=== PATIENT | female | born 1970 | race Caucasian/White ===

== ENCOUNTER 2017-08-20 06:10 | Day surgery (SDC) | payer OTHER ==
[2017-08-20 06:28] LABS: Specific Gravity 1.025 (1.005-1.030)
[2017-08-20] MEDS ORDERED: SCOPOLAMINE HYDROBROMIDE PATCH TD ONE (06:28)
[2017-08-20] MEDS ORDERED: NS 0.9% VIAL 10 ML ONE ×2 (06:28→07:21)
[2017-08-20] MEDS ORDERED: Ringers Lactate 1,000 ML IV ONE ×2 (06:28→08:46)
[2017-08-20] MEDS ORDERED: CEFAZOLIN SODIUM 1 GM/VIAL ONE (06:28)
[2017-08-20] MEDS ORDERED: BACITRACIN 50000 UNIT VIAL ONE (06:29)
[2017-08-20] MEDS ORDERED: LIDOCAINE 1% 20 ML MDV ONE (06:29)
[2017-08-20] MEDS ORDERED: GENTAMICIN SULF 80 MG/2ML INJ ONE (06:29)
[2017-08-20] MEDS ORDERED: CEFAZOLIN/SWI 2gm 2 GM/20 ML SYR IV SCH (07:00)
[2017-08-20] MEDS ORDERED: MIDAZOLAM HCL 2 MG/2 ML INJ ONE (07:12)
[2017-08-20] MEDS ORDERED: LIDOCAINE 2% MPF 5 ML VIAL ONE (07:12)
[2017-08-20] MEDS ORDERED: PROPOFOL 200 MG/20 ML VIAL IV ONE (07:12)
[2017-08-20] MEDS ORDERED: FENTANYL CITR 100 MCG/2 ML ONE ×2 (07:12→08:02)
[2017-08-20] MEDS ORDERED: ROCURONIUM 50 MG/5 ML VIAL IV ONE ×2 (07:12→07:48)
[2017-08-20] MEDS ORDERED: ONDANSETRON HCL 40 MG/20 ML VIAL ONE (07:13)
[2017-08-20] MEDS ORDERED: LIDOCAINE 1% W/EPI 1:100,000 MDV 50 ML VIAL ONE (07:26)
[2017-08-20] MEDS ORDERED: DEXAMETHASONE 10 MG/ML VIAL ONE (07:45)
[2017-08-20] MEDS ORDERED: GLYCOPYRROLATE 0.2 MG/ML SYR ONE (08:21)
[2017-08-20] MEDS ORDERED: KETOROLAC 30 MG/ML INJ ONE (08:24)
[2017-08-20] MEDS ORDERED: MEPERIDINE HCL 25 MG/0.5 ML ONE (09:24)
[2017-08-20] MEDS ORDERED: HYDROCODONE/APAP 7.5/325 MG TAB ONE (10:15)
--- NOTE | 2017-08-20 20:35 | OP ---
Date of Procedure: 08/20/2017 Surgeon: Jordan Guerin MD Project Control Officer: DEIDRE Chao. 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 Postoperative Diagnoses: Bilateral mammary hypoplasia and mild asymmetry. Operation Performed: Bilateral augmentation mammoplasty using mentor smooth, round, high profile gel implant, 500 cc placed through an inframammary approach in a dual plane pocket. Anesthesia: General endotracheal anesthesia as well as local anesthetic. A total of 20 cc of 1% lid ocaine with epinephrine 1:100,000 infiltrated in the breast based on preoperative markings prior to p repping and draping. Blood Loss: Minimal. Specimens: There were no specimens sent. Indications: The patient is a 47-year-old white female, who is interested in aesthetic rejuvenation of the breast to improve overall shape, fullness, projection, and improved symmetry. The patient und erstands the risks, limitations of the procedure and anesthesia as well as the implants, limitations of her own anatomy and wishes to proceed. Operation In Detail: The patient was seen in the preoperative holding area. The operative plan revi ewed. The size, style, and shape of implants were confirmed. She was given Ancef 2 g IV piggyback p rior to skin incision within 1 hour. ANTONI hose and sequential compression devices were placed on the lower extremities and activated prior to induction of general anesthesia. Markings were performed wi th planned inframammary approach for dual plane pocket placement of the implant. The patient was the n brought to the operating suite, placed in a comfortable supine position on the bed. After inductio n of general anesthesia, the arms were padded at the sides and taped across the lower abdomen. The c hest was prepped and draped in sterile fashion. Prior to this, infiltration of local anesthesia was carried out based on preoperative markings. Both prepping and draping was completed in a similar fas hion bilaterally. The inframammary incisions were made based on preoperative markings and cautery wa s used to dissect down through subcutaneous tissues and superficial fascia down to the chest wall whe re the lateral pectoralis muscle was identified and then elevated off the chest wall above its origin to a point corresponding to the medial aspect of the external inframammary fold. A dual plane pocke t was then created by dividing the muscle 1 cm above its origin from this point out through its later al border and then dissecting off the pectoralis minor, superior, and superomedial chest wall and dis secting out to the lateral border of the breast approximately the anterior axillary fold. After comp letion of pocket dissection, the pocket was copiously irrigated with saline and any bleeding points w ere cauterized. Once finding hemostasis to be satisfactory, the pockets were then irrigated with a 5 0:50 mix of 10% Betadine solution and triple antibiotic solution (500 cc of warm saline with 1 g Ance f, 50,000 units of bacitracin and 80 mg of gentamicin). This was left in place for approximately 5 m inutes and then the fluid was suctioned out of the pockets and then triple antibiotic solution was pl aced back in the pocket. The gloves were changed and wiped down with triple antibiotic soaked lap pa d, which was placed on the inframammary incisions and Betadine-soaked sponges were placed over the ni pple-areolar complex. In a no-touch fashion, the mentor smooth, round, high profile gel implant, 500 cc were then using a Rajan funnel, placed in the pocket and minor pocket adjustments were made with a uterine sound and further irrigation with triple antibiotic solution. Final hemostasis to be sati sfactory. The pockets were then closed with a deep running 2-0 PDS in the fascial layer and then an interrupted 3-0 PDS in the subdermal subcutaneous layer and then a running subcuticular 4-0 Monocryl. At the end of the case, the patient was found to have good symmetry and shape with both breasts and incisions intact. The incisions were then dressed with Xeroform gauze, ABD pads, Kerlix, and Cordell wr ap. The patient has extubated and taken recovery in stable condition where she will be discharged ho wa in care of her when she meets criteria for discharge. Advance to regular diet as tolerate d. She has tramadol to take as directed for pain as needed, Flexeril to take as directed as needed f or muscle spasm, oral Zofran ODT to take as directed as needed for nausea and oral doxycycline to take as directed staring postoperatively. We will see her back in the office allen zhu for recheck and dressing change. GP/MODL Voice ID: [id number] Report ID: [id number]
== END 2017-08-20 11:03 | disposition home or self-care (01) ==
LOC: OR 06:10
PROVIDERS: ATTEND Surgery Plastic and Reconstructive Surgery
PROC: 0H0V0JZ Alteration of Bilateral Breast with Synthetic Substitute, Open Approach (ICD-10-PCS; principal; 2017-08-20 07:30)
DX: N64.82 Hypoplasia of breast (principal); N64.89 Other specified disorders of breast; D64.9 Anemia, unspecified; Z88.0 Allergy status to penicillin
CPT/HCPCS: 81025; J0690; J1100; J1580; J2175; J2250; J2405; J3010